=== PATIENT | female | born 1955 | race Caucasian/White ===

== ENCOUNTER → 2016-11-10 | Outpatient (CLI) | payer OTHER | LOC: CIMAGING 08:13 | DX: Z12.31 Encounter for screening mammogram for malignant neoplasm of breast (principal) | CPT/HCPCS: G0202 ==

== ENCOUNTER 2018-12-11 15:23 | Emergency (ER) | payer OTHER | END 2018-12-11 15:45 | disposition home or self-care (01) ==

== ENCOUNTER 2018-12-12 16:11 | Emergency (ER) | payer OTHER | END 2018-12-12 17:18 | disposition home or self-care (01) ==